=== PATIENT | male | born 1955 | race Caucasian/White ===

== ENCOUNTER 2021-12-22 08:52 | Day surgery (SDC) | payer MEDICARE, OTHER ==
[2021-11-17 14:40] LABS: BASOPHILS # (AUTO) 0.1 X10'3 (0-0.2); EOSINOPHILS # (AUTO) 0.1 X10'3 (0-0.9); EOSINOPHILS % (AUTO) 1.6 % (0-6); LYMPHOCYTES # (AUTO) 1.4 X10'3 (1.1-4.8); LYMPHOCYTES % (AUTO) 19.9 % (21-51); MEAN CORPUSCULAR HEMOGLOBIN 32.3 PG (27.0-31.0); MEAN CORPUSCULAR HGB CONC 33.9 g/dL (33.0-36.5); MEAN CORPUSCULAR VOLUME 95.5 FL (78-98); MEAN PLATELET VOLUME 7.4 FL (7.4-10.4); MONOCYTES # (AUTO) 0.4 X10'3 (0-0.9); MONOCYTES % (AUTO) 6.2 % (2-12); NEUTROPHILS % (AUTO) 71.3 % (42-75); PRE OP HEMATOCRIT 47.5 % (42.0-52.0); PRE OP HEMOGLOBIN 16.1 g/dL (14.0-17.9); PRE OP PLATELET COUNT 275 X10'3 (140-440); RED BLOOD COUNT 4.98 X10'6 (4.70-6.10); RED CELL DISTRIBUTION WIDTH 13.8 % (11.5-14.5)
[2021-11-17 14:51] LABS: ALBUMIN 3.8 G/DL (3.4-5.0); ALKALINE PHOSPHATASE 81 IU/L (46-116); BLOOD UREA NITROGEN 27 MG/DL (7-18); BUN/CREATININE RATIO 19.6 (5.4-32.0); CALCIUM 9.2 MG/DL (8.5-10.1); CHLORIDE 108 MMOL/L (99-107); CREATININE 1.38 MG/DL (0.60-1.10); PRE OP ALT 16 U/L (30-65); PRE OP ANION GAP 9 (8-16); PRE OP AST 15 U/L (10-37); PRE OP BILIRUB, TOTAL 0.4 MG/DL (0.0-1.0); PRE OP GLUCOSE 111 MG/DL (70-104); PRE OP POTASSIUM 4.2 MMOL/L (3.4-5.1); PRE OP SODIUM 143 MMOL/L (135-145); TOTAL CARBON DIOXIDE 26.3 MMOL/L (24-32); TOTAL PROTEIN 7.6 G/DL (6.4-8.2); eGFR 51 ML/MIN
[2021-12-11 15:27] LABS: BASOPHILS # (AUTO) 0.1 X10'3 (0-0.2); BASOPHILS % (AUTO) 0.7 % (0-1); EOSINOPHILS # (AUTO) 0.1 X10'3 (0-0.9); EOSINOPHILS % (AUTO) 0.9 % (0-6); LYMPHOCYTES # (AUTO) 1.9 X10'3 (1.1-4.8); LYMPHOCYTES % (AUTO) 19.1 % (21-51); MEAN CORPUSCULAR HEMOGLOBIN 32.6 PG (27.0-31.0); MEAN CORPUSCULAR HGB CONC 34.9 g/dL (33.0-36.5); MEAN CORPUSCULAR VOLUME 93.5 FL (78-98); MEAN PLATELET VOLUME 7.2 FL (7.4-10.4); MONOCYTES # (AUTO) 0.6 X10'3 (0-0.9); MONOCYTES % (AUTO) 6.5 % (2-12); NEUTROPHILS # (AUTO) 7.1 X10'3 (1.8-7.7); NEUTROPHILS % (AUTO) 72.8 % (42-75); PRE OP HEMATOCRIT 44.5 % (42.0-52.0); PRE OP HEMOGLOBIN 15.5 g/dL (14.0-17.9); PRE OP PLATELET COUNT 298 X10'3 (140-440); RED BLOOD COUNT 4.76 X10'6 (4.70-6.10); RED CELL DISTRIBUTION WIDTH 13.1 % (11.5-14.5)
[2021-12-11 15:43] LABS: ALBUMIN 3.9 G/DL (3.4-5.0); ALBUMIN/GLOBULIN RATIO 1.3 (1.1-1.5); ALKALINE PHOSPHATASE 89 IU/L (46-116); BLOOD UREA NITROGEN 22 MG/DL (7-18); BUN/CREATININE RATIO 14.9 (5.4-32.0); CALCIUM 9.1 MG/DL (8.5-10.1); CHLORIDE 108 MMOL/L (99-107); CREATININE 1.48 MG/DL (0.60-1.10); PRE OP ALT 26 U/L (30-65); PRE OP ANION GAP 10 (8-16); PRE OP AST 19 U/L (10-37); PRE OP BILIRUB, TOTAL 0.4 MG/DL (0.0-1.0); PRE OP GLUCOSE 109 MG/DL (70-104); PRE OP POTASSIUM 4.8 MMOL/L (3.4-5.1); PRE OP SODIUM 142 MMOL/L (135-145); TOTAL CARBON DIOXIDE 23.9 MMOL/L (24-32); eGFR 47 ML/MIN
[~2021-12-22] VITALS: Ht 182.9 cm; Wt 90.7 kg
[2021-12-22] VITALS (26 sets, daily range): BP systolic 101–157; BP diastolic 52–83
[2021-12-22] MEDS: potassium cl 20mEq in 1/2 NS 1,000 ML IV SCH ×3 (07:05→23:05)
[2021-12-22] MEDS: gabapentin 300mg capsule PO SCH ×3 (08:00→20:38)
[2021-12-22] MEDS: amLODIPine 5mg tablet PO SCH (08:00)
[2021-12-22] MEDS: ascorbic acid 500mg tablet PO SCH ×2 (08:00→20:38)
[2021-12-22] MEDS: lisinopril 20mg tablet PO SCH ×2 (08:00→20:38)
[2021-12-22] MEDS: ceFAZolin/D5W- 1GM premix 50 ML IV SCH ×4 (08:00→23:55)
[2021-12-22] MEDS: aspirin 81mg, enteric-coated 1 TAB TABLET.DR PO SCH (08:00)
[2021-12-22] MEDS: multivitamins, therapeutics tablet PO SCH (08:00)
[~2021-12-22 08:52] MED LIST: AMLO5TAB16 PO; ASPI81TA52 PO; ENAL20TA36 PO; HYDROmorphone 1 mg/ml syringe IV PRN; HYDROmorphone inj. 0.5 MG/0.5 ML DISP.SYRIN IV PRN; VANCOMYCIN 1,500MG inj. 1,500 MG in dextrose 5% water 500ml 300 ML IV ONE; acetaminophen 325mg tablet PO ONE; acetaminophen 325mg tablet PO PRN; bisacodyl 10mg suppository rectal RC PRN; cefazolin/dext.iso 2gm/50ml IV ONE; celeCOXIB 100mg capsule PO ONE; diphenhydrAMINE 25mg capsule PO PRN; famotidine 20mg tablet PO ONE; gabapentin 300mg capsule PO ONE; magnesium hydroxide 30ml (MOM) UD suspension PO PRN; metoclopramide 5 mg/ml inj IV ONE; ondansetron/PF 4mg/2ml inj IV PRN; oxyCODONE SR 10mg (sust. release) tab -2 tabs (20mg) PO ONE; oxyCODONE/APAP 10/325mg tablet PO PRN; ringers solution, lacted 1,000 ML IV SCH; tranexamic acid inj. 1,000 MG in 0.7% saline 100 ML PMX IV ONE; vancomycin 1,500 MG in NS 300ml IV soln IV ONE
[2021-12-22] MEDS ORDERED: vancomycin 1,000mg inj ONE (10:15)
[2021-12-22] MEDS ORDERED: ROPIVAcaine 0.5% (5mg/ml) 30ml vial ONE (10:15)
[2021-12-22] MEDS ORDERED: ketorolac trometh. 30mg/ml inj. ONE (10:15)
[2021-12-22] MEDS ORDERED: cloNIDine hcl/PF 100mcg/ml inj ONE ×2 (10:15→10:40)
[2021-12-22] MEDS ORDERED: MIDAZolam 1 MG/ML 5ML VIAL ONE (11:03)
[2021-12-22] MEDS ORDERED: propofol inj 20 ML IV ONE ×3 (11:12→12:39)
[2021-12-22] MEDS ORDERED: ePHEDrine 50MG/ML INJ. ONE (11:39)
[2021-12-22] MEDS ORDERED: phenylephrine 10mg/ml inj. ONE (12:04)
[2021-12-22] MEDS ORDERED: 0.9 % SODIUM CHLORIDE 10 ML VIAL ONE (12:04)
[2021-12-22] MEDS ORDERED: labetalol 20mg/4ml (5mg/ml) syringe IV PRN (12:10)
[2021-12-22] MEDS ORDERED: ROPIVAcaine 0.2% (10 MG/5 ML) BOLUS INJECTION ADDCANAL PRN (12:10)
[2021-12-22] MEDS ORDERED: ROPIVAcaine 0.2%/PF PUMP/bolus 545 ML ADDCANAL SCH (12:10)
[2021-12-22] MEDS ORDERED: morphine 2 MG/ML inj. syringe IV PRN (12:10)
[2021-12-22] MEDS ORDERED: proCHLORperazine 10 MG/2 ml inj IV PRN (12:10)
[2021-12-22] MEDS ORDERED: ringers solution, lacted 1,000 ML IV SCH (12:10)
[2021-12-22] MEDS ORDERED: hydrALAZINE 20mg/ml inj. IV PRN (12:10)
[2021-12-22] MEDS ORDERED: ondansetron/PF 4mg/2ml inj IV PRN (12:10)
[2021-12-22] MEDS ORDERED: morphine 4 MG/ML inj SYRINge IV PRN (12:10)
[2021-12-22] MEDS ORDERED: meperidine/PF 25mg/ml syringe IV PRN ×3 (12:10)
[2021-12-22] MEDS ORDERED: acetaminophen 1,000mg/100ml IV 100 ML IV PRN (12:10)
--- NOTE | 2021-12-22 13:26 | NUR ---
Received from OR via hospital bed, accompanied by Anesthesiologist SABRINA HERRMANN and report given by Anesthesiolgist. PT PRESENTS WITH 20G RIGHT HAND, LEFT KNEE DRESSING CLEAN DRY AND INTACT WITH WRAP AND POWDER PACK WITH CHUCHO DRESSING, ON-Q READY. VSS. Addendum: 12/22/21 at 1334 by Hattie Michelle RN, RN Amended: Links added.
--- NOTE | 2021-12-22 16:00 | NUR ---
Report called to receiving nurse VIRGIL ACUÑA. Transferred via HOSPITAL BED TO ROOM 357A WITH 1 PT Belongings BAG. BED IN LOW LOCKED POSITIONS WITH VITALS HOOKED UP, PT GIVEN CALL LIGHT. Special Issues communicated to receiving nurse. Addendum: 12/22/21 at 1605 by Hattie Michelle RN RN Amended: Links added.
[2021-12-22] MEDS ORDERED: tranexamic acid 1gm/0.7% sal. 100 ML IV ONE (16:30)
--- NOTE | 2021-12-22 18:21 | NUR ---
Problems reprioritized. Patient report given, questions answered & plan of care reviewed with NITA ACUÑA.
--- NOTE | 2021-12-22 18:22 | NUR ---
Patient in room [facility]. I have received report from DOMENICO Canales and had the opportunity to ask questions and assume patient care.
[2021-12-22] MEDS ORDERED: VANCOMYCIN 1GM/200ML IVPB 200 ML IV SCH (20:00)
[2021-12-22] MEDS ORDERED: sennosides 8.6mg tablet PO SCH (21:00)
[2021-12-23] MEDS: potassium cl 20mEq in 1/2 NS 1,000 ML IV SCH (03:25)
[2021-12-23 04:00] VITALS: BP 118/53
--- NOTE | 2021-12-23 05:09 | NUR ---
DC'd pt diaz at 0509 9cc out of balloon. Pt tolerated well.
[2021-12-23] MEDS: oxyCODONE/APAP 10/325mg tablet PO PRN ×2 (05:48→10:28)
--- NOTE | 2021-12-23 06:15 | NUR ---
Problems reprioritized. Patient report given, questions answered & plan of care reviewed with DOMENICO Norton.
[2021-12-23 07:19] LABS: BASOPHILS % (AUTO) 0.4 % (0-1); EOSINOPHILS # (AUTO) 0.1 X10'3 (0-0.9); EOSINOPHILS % (AUTO) 1.3 % (0-6); HEMATOCRIT 38.7 % (42.0-52.0); LYMPHOCYTES # (AUTO) 1.1 X10'3 (1.1-4.8); LYMPHOCYTES % (AUTO) 15.1 % (21-51); MEAN CORPUSCULAR HGB CONC 33.7 g/dL (33.0-36.5); MEAN CORPUSCULAR VOLUME 94.8 FL (78-98); MEAN PLATELET VOLUME 7.6 FL (7.4-10.4); MONOCYTES # (AUTO) 0.7 X10'3 (0-0.9); MONOCYTES % (AUTO) 9.6 % (2-12); NEUTROPHILS # (AUTO) 5.6 X10'3 (1.8-7.7); NEUTROPHILS % (AUTO) 73.6 % (42-75); PLATELET COUNT 221 X10'3 (140-440); RED BLOOD COUNT 4.08 X10'6 (4.70-6.10); RED CELL DISTRIBUTION WIDTH 13.7 % (11.5-14.5); WHITE BLOOD COUNT 7.6 X10'3 (4.5-11.0)
[2021-12-23 08:09] LABS: ANION GAP 8 (8-16); CHLORIDE 108 MMOL/L (99-107); POTASSIUM 4.7 MMOL/L (3.5-5.1); SODIUM 140 MMOL/L (135-145); TOTAL CARBON DIOXIDE 23.9 MMOL/L (24-32)
[2021-12-23 08:35] VITALS: BP 116/63
[2021-12-23] MEDS: multivitamins, therapeutics tablet PO SCH (09:19)
[2021-12-23] MEDS: lisinopril 20mg tablet PO SCH (09:20)
[2021-12-23] MEDS: aspirin 81mg, enteric-coated 1 TAB TABLET.DR PO SCH (09:20)
[2021-12-23] MEDS: gabapentin 300mg capsule PO SCH (09:21)
[2021-12-23 09:22] VITALS: BP_SYST 116
[2021-12-23] MEDS: amLODIPine 5mg tablet PO SCH (09:22)
[2021-12-23] MEDS: ascorbic acid 500mg tablet PO SCH (09:26)
--- NOTE | 2021-12-23 10:41 | NUR ---
Joint surgery consult: Pt s/p L knee surgery this admit. Pt seen by BRANDO at bedside for written/verbal high protein ed w/ RD contact information provided. Pt reports eating high protein foods at home; RD reviewed protein supplement options w/ pt. Pt reports will start multivitamin for wound healing at home. RD encouraged pt to contact dietitian's office if further questions/concerns. Addendum: 12/23/21 at [address] Amended: Links added.
--- NOTE | 2021-12-23 11:35 | NUR ---
Pt DC to home with and daughter Janina DOMENICO (recovery). Pt is A & o x4 and in no apparent distress. pt and verbalize understanding of ALL DC orders. PT educated on wound care, gurjit dressing, OnQ ball care. Pt given printed materials and educated on use and DC of it. Pt's IV removed intact. All meds were given before hand, so pt is set up to go home with his meds already at home. pt given his ice packs and wheeled to the front where his took him home to [place]. Addendum: 12/23/21 at 1217 by Cierra Valentine RN wrong pt
--- NOTE | 2021-12-23 11:35 | NUR ---
Pt DC to home with , they live in [place]. Pt is A & o x4 and in no apparent distress. pt and verbalize understanding of ALL DC orders. PT educated on wound care, gurjit dressing, OnQ ball care. Pt given printed materials and educated on use and DC of it. Pt's IV removed intact. All meds were given before hand, so pt is set up to go home with his meds already at home. pt given his ice packs and wheeled to the front where his took him home to [place].
[2021-12-23] MEDS ORDERED: celeCOXIB 100mg capsule PO SCH (20:00)
== END 2021-12-23 11:27 | disposition home or self-care (01) ==
LOC: PRE-OP 08:52 → SUR 3N 16:38 → PRE-OP 12-23 11:27
PROVIDERS: ATTEND Orthopaedic Surgery
DX: M17.12 Unilateral primary osteoarthritis, left knee (principal); Z20.822 Contact with and (suspected) exposure to COVID-19; Z79.01 Long term (current) use of anticoagulants; Z72.89 Other problems related to lifestyle
CPT/HCPCS: 27447; 36415; 71046; 73560; 76942; 80051; 80053; 85025; 86885; 86900; 86901; 87081; 93005; 97110; 97116; 97161; 97530; C1713; C1758; C1776; J0690; J0735; J1170; J1885; J2250; J2370; J2405; J2704; J2765; J2795; J3370; J3480; J3490; J7030; J7040; J7060; J7120; U0003; U0005; Z7506; Z7508; Z7512; A4215; A6449; A7000; G0378

== ENCOUNTER 2021-12-26 15:36 | Emergency (ER) | payer MEDICARE, OTHER ==
[~2021-12-26] VITALS: Ht 182.9 cm; Wt 90.9 kg
[~2021-12-26 15:36] MED LIST changes: -HYDROmorphone 1 mg/ml syringe IV PRN; -HYDROmorphone inj. 0.5 MG/0.5 ML DISP.SYRIN IV PRN; -VANCOMYCIN 1,500MG inj. 1,500 MG in dextrose 5% water 500ml 300 ML IV ONE; -acetaminophen 325mg tablet PO ONE; -acetaminophen 325mg tablet PO PRN; -bisacodyl 10mg suppository rectal RC PRN; -cefazolin/dext.iso 2gm/50ml IV ONE; -celeCOXIB 100mg capsule PO ONE; -diphenhydrAMINE 25mg capsule PO PRN; -famotidine 20mg tablet PO ONE; -gabapentin 300mg capsule PO ONE; -magnesium hydroxide 30ml (MOM) UD suspension PO PRN; -metoclopramide 5 mg/ml inj IV ONE; -ondansetron/PF 4mg/2ml inj IV PRN; -oxyCODONE SR 10mg (sust. release) tab -2 tabs (20mg) PO ONE; -oxyCODONE/APAP 10/325mg tablet PO PRN; -ringers solution, lacted 1,000 ML IV SCH; -tranexamic acid inj. 1,000 MG in 0.7% saline 100 ML PMX IV ONE; -vancomycin 1,500 MG in NS 300ml IV soln IV ONE
[2021-12-26 15:39] VITALS: BP 171/82
[2021-12-26] MEDS ORDERED: iohexol 350MG/ML 100ml bottle IV ONE (15:54)
--- NOTE | 2021-12-26 20:53 | NUR ---
Pt unable to find transport home until morning. Will move to closed room bed with door for privacy. Pt placed on hospital bed. Blankets given. Walker nearby. Oriented to call light and restroom access.
== END 2021-12-27 09:15 | disposition home or self-care (01) ==
LOC: ER 15:37
DX: T81.89XD Other complications of procedures, not elsewhere classified, subsequent encounter (principal); M25.462 Effusion, left knee; I10 Essential (primary) hypertension; J45.909 Unspecified asthma, uncomplicated; Z98.890 Other specified postprocedural states; Z72.89 Other problems related to lifestyle; Z79.82 Long term (current) use of aspirin; Z79.899 Other long term (current) drug therapy; Y83.8 Other surgical procedures as the cause of abnormal reaction of the patient, or of later complication, without mention of misadventure at the time of the procedure
CPT/HCPCS: 71275; 93005; 93971; 99285; Q9967